=== PATIENT | female | born 1980 | race Caucasian/White ===

== ENCOUNTER 2019-01-09 14:54 | Emergency (ER) | payer OTHER ==
[~2019-01-09] VITALS: Ht 147.3 cm; Wt 44.0 kg
[2019-01-09 14:58] VITALS: BP 109/71; PULSE 85; RESP 16; Ht 147.3 cm; Wt 44.0 kg
[2019-01-09] MEDS ORDERED: SOD CHLORIDE 0.9% 500 ML IV STA (16:15)
[2019-01-09] MEDS ORDERED: KETOROLAC 30 MG INJ IV STA (16:15)
[2019-01-09] MEDS ORDERED: PROCHLORPERAZINE 10 MG INJ IV STA (16:15)
[2019-01-09] MEDS ORDERED: ONDANSETRON 4 MG INJ IV STA (16:15)
--- NOTE | 2019-01-09 17:20 | ERD ---
ER Documentation Chief Complaint Chief Complaint pt is bib self with c/o headache, feeling dizzy loss of appetite, cough HPI This a 38-year-old Faroese-speaking male presents to the ED complaining of a tension headache for the past 3 days. Headache has been getting progressively worse. She reports associated photo phobia and nausea. No vomiting. No fevers. No focal weakness. No neck stiffness. She states her headache is squeezing in sensation and located behind her eyes. She took Tylenol any relief. She states she has been having significant amount of work stress. Had a similar headache 2 months ago. ROS All systems reviewed and are negative except as per history of present illness. Allergies Allergies: Coded Allergies: No Known Allergy (Unverified , 01/09/19) PMhx/Soc Medical and Surgical Hx: pt denies Medical Hx, pt denies Surgical Hx Hx Alcohol Use: No Hx Substance Use: No Hx Tobacco Use: No Smoking Status: Never smoker Physical Exam Vitals Vital Signs Date Temp Pulse Resp B/P (MAP) Pulse Ox O2 O2 Flow FiO2 Time Delivery Rate 01/09/19 98.3 85 16 109/71 98 14:58 (84) Physical Exam Const: No acute distress Head: Atraumatic Eyes: Normal Conjunctiva ENT: Normal External Ears, Nose and Mouth. Neck: Full range of motion. No meningismus. Resp: Clear to auscultation bilaterally Cardio: Regular rate and rhythm, no murmurs Abd: Soft, non tender, non distended. Normal bowel sounds Skin: No petechiae or rashes Back: No midline or flank tenderness Ext: No cyanosis, or edema Neuro: M/S: Alert and oriented Face: EOMI, face and pharynx with normal sensation and function Motor: Normal strength throughout Sensation: Normal sensation throughout Speech: Normal Cerebel: Normal coordination Normal gait Psych: Normal Mood and Affect Results 24 hrs Current Medications Medications Dose Sig/Steffi Start Time Status Last (Trade) Ordered Route PRN Stop Time Admin Dose Reason Admin Sodium 500 ml @ Q1H STAT 01/09/19 01/09/19 Chloride 500 mls/hr IV 16:15 16:37 01/09/19 17:14 10 mg ONCE STAT 01/09/19 DC 01/09/19 Prochlorperaz IV 16:15 16:38 ine 01/09/19 16:17 (Compazine Inj) Ondansetron 4 mg ONCE STAT 01/09/19 DC 01/09/19 HCl (Zofran IV 16:15 16:38 Inj) 01/09/19 16:17 Ketorolac 15 mg ONCE STAT 01/09/19 DC 01/09/19 Tromethamine IV 16:15 16:38 (Toradol) 01/09/19 16:17 Procedures/MDM ED COURSE: The patient was given IV fluids, Compazine, Toradol, Zofran The medication was well tolerated and the patient had market improvement in symptoms. The patient remained stable throughout ED course. MEDICAL DECISION MAKIN-year-old female presents with a headache. History and physical most consistent with primary headache. Vital signs are stable. No focal neurological deficits on physical exam. Clinical presentation not consistent with subarachnoid hemorrhage, epidural or subdural hematoma, IC mass, CVA, encephalitis or meningitis. She felt much better after fluids, Compazine, Toradol and Zofran. Patient will be discharged home and left prior to receiving her discharge paperwork. PRESCRIPTIONS: None SPECIALIST FOLLOW UP RECOMMENDED: None Patient has been advised to follow up with primary care in 1-2 days. Departure Diagnosis: Primary Impression: Tension headache Condition: Stable Additional Instructions: Paciente aconseja volver a Departamento de urgencias inmediatamente para sntomas nuevos o que empeoran . Paciente aconseja posteriores con el PCP en 1-2 erickson. Si el paciente no tiene ninguna de atencin primaria pueden seguir con [facility] [id number] [place] [address] o [facility] + [address] [address] ANTOINETTE CHENG PA-C Jan 09, 2019 17:19
== END 2019-01-09 17:32 | disposition left against medical advice (07) ==
LOC: FTE 14:54
DX: G44.209 Tension-type headache, unspecified, not intractable (principal)
CPT/HCPCS: 81025; 96374; 96375; J0780; J1885; J2405; J7040; Z7502

== ENCOUNTER 2019-01-09 20:15 | Emergency (ER) | payer SELFPAY ==
[~2019-01-09] VITALS: Wt 48.3 kg
[2019-01-09 20:18] VITALS: BP 122/59; PULSE 65; RESP 18
== END 2019-01-10 01:12 | disposition left against medical advice (07) ==
LOC: FTE 20:15
DX: Z53.21 Procedure and treatment not carried out due to patient leaving prior to being seen by health care provider (principal)